=== PATIENT | male | born 1985 | race African-American/Black ===

== ENCOUNTER 2018-01-12 06:17 | Emergency (ER) | payer SELFPAY ==
[2018-01-12 07:31] LABS: ALT (SGPT) 14 U/L (8-55); AST (SGOT) 26 U/L (5-34); Alkaline Phosphatase 53 U/L (40-150); Anion Gap 12 mmol/L (10-20); BUN (Urea Nitrogen) 8 mg/dL (8.9-20.6); Bilirubin, Total 0.6 mg/dL (0.2-1.2); Calc. Creatinine Clearance 0 mL/min (70-130); Calcium 8.9 mg/dL (7.8-10.44); Carbon Dioxide 24 mmol/L (22-29); Chloride 106 mmol/L (98-107); Estimated GFR-MDRD 76; Globulin 2.5 g/dL (2.4-3.5); Glucose 90 mg/dL (70-105); Lipase 31 U/L (8-78); Potassium 3.4 mmol/L (3.5-5.1); Protein, Total 6.5 g/dL (6.0-8.3); Sodium 139 mmol/L (136-145)
[2018-01-12 07:33] LABS: Band 1 % (5-11); Eosinophils 1 % (0-10); Hemoglobin 15.3 g/dL (14.0-18.0); Lymphocytes 30 % (21-51); MDiff Complete? YES; Mean Corpuscular HGB CONC 33.5 g/dL (32.0-36.0); Mean Corpuscular Hemoglobin 32.6 pg (27.0-31.0); Mean Corpuscular Volume 97.4 fl (80.0-94.0); Mean Platelet Volume 7.4 fL (7.4-10.4); Monocytes 4 % (0-10); Neutrophil 58 % (42-75); Platelet Count 195 thou/uL (130-400); RBC Distribution Width 13.4 % (11.5-14.5); RBC Morphology Normal; Reactive Lymphocytes 5 % (0-10); Red Blood Cell (RBC) Count 4.69 mill/uL (4.70-6.10); White Blood Cell (WBC) Count 9.2 thou/uL (4.8-10.8)
[2018-01-12] MEDS ORDERED: Pantoprazole 40 MG VIAL ONE ×2 (07:46→07:57)
[2018-01-12] MEDS ORDERED: Promethazine HCl 25 MG/ML VIAL ONE (07:46)
[2018-01-12 09:35] LABS: Bilirubin Negative (Negative); Blood, Urine Negative (Negative); Clarity CLEAR (Clear); Glucose, Urine (Dipstick) Negative (Negative); Leukocyte Negative (Negative); Nitrite Negative (Negative); Protein, Urine (Dipstick) Negative (Neg-Trace); Specific Gravity, Urine 1.009 (1.002-1.036); Urobilinogen 0.2 mg/dL (0.2-1.0); pH, Urine 6.5 (5.0-9.0)
== END 2018-01-12 12:03 | disposition home or self-care (01) ==
LOC: ERS 06:17
DX: R19.7 Diarrhea, unspecified (principal); R10.12 Left upper quadrant pain; I10 Essential (primary) hypertension; K21.9 Gastro-esophageal reflux disease without esophagitis; F17.210 Nicotine dependence, cigarettes, uncomplicated; Z71.6 Tobacco abuse counseling; Z79.899 Other long term (current) drug therapy
CPT/HCPCS: 80053; 81003; 83690; 85025; 96361; 96365; 96375; 99406; C9113; J2550